=== PATIENT | male | born 1960 | race Caucasian/White ===

== ENCOUNTER 2017-12-16 14:32 | Observation (INO) | payer BC ==
[2017-12-16] MEDS ORDERED: NS 1,000 ML IV ONE (14:38)
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
--- NOTE | 2017-12-16 14:40 | CPEKG ---
Heart Rate: 101 RR Interval: 594 P-R Interval: 208 QRSD Interval: 88 QT Interval: 344 QTC Interval: 446 P [place]: 67 QRS [place]: 81 T Wave [place]: 166 EKG Severity - ABNORMAL ECG - EKG Impression: SINUS TACHYCARDIA EKG Impression: FIRST DEGREE AV BLOCK EKG Impression: PROBABLE LEFT ATRIAL ABNORMALITY EKG Impression: ANTERIOR INFARCT, POSSIBLY ACUTE Electronically Signed By: Erik Cramer 19-Dec-2017 20:47:12
[2017-12-16 14:56] LABS: PLATELET COUNT 193 10^3/uL (150-400)
[2017-12-16 15:06] LABS: INR 0.97 (0.83-1.16); PROTIME(PATIENT) 13.1 SEC (12.0-15.0)
[2017-12-16] MEDS ORDERED: MAG HYDROX/AL HYDROX/SIMETH 30 ML UDCUP PO ONE (15:36)
[2017-12-16] MEDS ORDERED: LIDOCAINE 2% VISCOUS 15 ML UDCUP PO ONE (15:36)
[2017-12-16] MEDS ORDERED: HYOSCYAMINE SULFATE 0.125 MG TAB PO ONE (15:36)
[2017-12-16] MEDS ORDERED: ACETAMINOPHEN 325 MG TAB PO PRN (15:48)
[2017-12-16] MEDS ORDERED: NITROGLYCERIN 0.4 MG BTL SL PRN (15:51)
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
[2017-12-16] MEDS ORDERED: NS W/ 20 KCl/L 1,000 ML IV SCH (16:00)
[2017-12-16 16:24] LABS: CREATINE KINASE 507 IU/L (0-224)
[2017-12-16] MEDS ORDERED: ROSUVASTATIN CALCIUM 40 MG TAB PO SCH (18:00)
--- NOTE | 2017-12-16 18:14 | CPEKG ---
Heart Rate: 75 RR Interval: 800 P-R Interval: 220 QRSD Interval: 96 QT Interval: 388 QTC Interval: 434 P [place]: 62 QRS [place]: 60 T Wave [place]: 135 EKG Severity - ABNORMAL ECG - EKG Impression: SINUS RHYTHM EKG Impression: FIRST DEGREE AV BLOCK EKG Impression: PROBABLE LEFT ATRIAL ABNORMALITY EKG Impression: ANTERIOR INFARCT, AGE INDETERMINATE EKG Impression: COMPARED WITH 12/16/2017 AT 14:35, REPOL ABNL RESOLVED Electronically Signed By: Tessa Bhatt 16-Dec-2017 21:46:32
[2017-12-16 19:57] LABS: CREATINE KINASE 863 IU/L (0-224)
[2017-12-16] MEDS: AMLODIPINE BESYLATE 5/BENAZEPRIL 20MG 1 EACH CAP PO SCH (20:20)
[2017-12-16] MEDS: BENAZEPRIL HCL 20 MG TAB PO SCH (20:20)
[2017-12-16] MEDS ORDERED: FAMOTIDINE 20 MG TAB PO PRN (21:00)
[2017-12-16 23:04] LABS: CREATINE KINASE 786 IU/L (0-224)
[2017-12-17 04:31] LABS: CREATINE KINASE 681 IU/L (0-224)
[2017-12-17 07:23] VITALS: BP 138/65
[2017-12-17] MEDS: AMLODIPINE BESYLATE 5/BENAZEPRIL 20MG 1 EACH CAP PO SCH (08:28)
[2017-12-17] MEDS: BENAZEPRIL HCL 20 MG TAB PO SCH (08:28)
--- NOTE | 2017-12-17 08:40 | CPEKG ---
Heart Rate: 53 RR Interval: 1132 P-R Interval: 220 QRSD Interval: 92 QT Interval: 424 QTC Interval: 399 P [place]: 69 QRS [place]: 62 T Wave [place]: 102 EKG Severity - ABNORMAL ECG - EKG Impression: SINUS RHYTHM EKG Impression: FIRST DEGREE AV BLOCK EKG Impression: PROBABLE LEFT ATRIAL ABNORMALITY EKG Impression: CONSIDER ANTEROSEPTAL INFARCT EKG Impression: NONSPECIFIC T ABNORMALITIES, LATERAL LEADS EKG Impression: LATERAL ST CHANGES ARE MORE FLATTENED IN THIS ECG Electronically Signed By: Erik Cramer 19-Dec-2017 20:48:22
[2017-12-17] MEDS ORDERED: SPIRONOLACTONE 25 MG TAB PO SCH (09:00)
[2017-12-17] MEDS ORDERED: METOPROLOL SUCCINATE XR 25 MG TAB PO SCH (09:00)
[2017-12-17] MEDS ORDERED: ASPIRIN 81 MG CHEWABLE TAB PO SCH (09:00)
[2017-12-17] MEDS ORDERED: CHLORTHALIDONE 25 MG TAB PO SCH (09:00)
[2017-12-17] MEDS ORDERED: CLOPIDOGREL BISULFATE 75 MG TAB PO SCH (09:00)
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
== END 2017-12-17 10:41 | disposition home or self-care (01) ==
LOC: F2W 16:12
PROVIDERS: ADMIT Internal Medicine Interventional Cardiology; ATTEND Internal Medicine Interventional Cardiology
DX: R55 Syncope and collapse (principal); I25.10 Atherosclerotic heart disease of native coronary artery without angina pectoris; R93.1 Abnormal findings on diagnostic imaging of heart and coronary circulation; I10 Essential (primary) hypertension; E78.5 Hyperlipidemia, unspecified; I25.2 Old myocardial infarction; Z95.1 Presence of aortocoronary bypass graft
CPT/HCPCS: 71045; 93005; 93308; G0378; 84484-PO